=== PATIENT | female | born 1975 | race Caucasian/White ===

== ENCOUNTER 2016-08-24 00:04 | Emergency (ER) | payer OTHER ==
[2016-08-24 00:29] VITALS: BP 134/90
== END 2016-08-24 00:29 | disposition other institution (70) ==
LOC: ED 00:04
DX: Z02.89 Encounter for other administrative examinations (principal); E66.9 Obesity, unspecified; V49.9XXA Car occupant (driver) (passenger) injured in unspecified traffic accident, initial encounter; Y93.89 Activity, other specified; Y99.8 Other external cause status; Y92.89 Other specified places as the place of occurrence of the external cause